=== PATIENT | female | born 1970 | race Caucasian/White ===

== ENCOUNTER 2021-09-08 09:25 | Emergency (ER) | payer OTHER, SELFPAY ==
[2021-09-08 09:55] VITALS: BP 120/82; PULSE 91; RESP 17; TEMP 36.7; O2SAT 99; BMI 31.9
--- NOTE | 2021-09-08 09:59 | HMH.EDUTC ---
[facility] [place] Clinical Impression: UTI (urinary tract infection) Qualifiers: Urinary tract infection type: site unspecified Hematuria presence: with hematuria Qualified Code(s): N39.0 - Urinary tract infection, site not specified Disposition: Home, Self-Care Condition on Discharge: Good Instructions: Urinary Tract Infection, DI for Urinary Tract Infection (UTI) Additional Instructions: *Increase fluids. Water not Soda or Tea *Start antibiotic immediately and be sure to take as ordered for the FULL length of time although you should start to see improvement over the next 48 hours *Pyridium as needed Remember this medication will turn your urine [place]. This is normal but it will stain what ever it gets on *You should not use Pyridium for more than 48 hours. If so , follow up with your primary physician to review urine culture and ensure that antibiotic is adequate for infection *Be SURE to follow up anytime for new or worsening symptoms with your family doctor. AND in 48 hours for urine culture results with your family doctor, if you do not have a doctor then you may call back to the [facility] for urine culture results and further treatment. We do recommend that you choose and establish care with a Primary Care Physician. AND follow up with them in 10-14 days to repeat UA to ensure infection is resolved and blood no longer present *Be sure to let your PCP know that we sent urine cultures from the [facility] so they can follow up to ensure that you area the on the correct antibiotic Call your doctor office and make appointment for 48 hours (2 days from today) to follow up and get the results of your urine culture and further treatment Prescriptions: Ciprofloxacin HCl [Cipro 500mg Tab] 500 mg PO BID 7 Days #14 tab Transmission Status: Received by [facility] Phenazopyridine HCl [Pyridium 200mg Tablet] 200 pow PO TID #6 tab Transmission Status: Received by [facility] Referrals: Provider,Referral, [Primary Care Provider] - As needed Time of Disposition: 10:10 Medical Decision Making - Tj Inquiry Pt receiving controlled substance: No Tj was queried for this patient: No Vital Signs: 09/08/21 09:55 09/08/21 10:19 Temperature 98.0 F 98.0 F Temperature Source Oral Pulse Rate 91 H Pulse Rate [Left Radial] 91 H Respiratory Rate 17 17 Blood Pressure 120/82 Blood Pressure [Right Arm] 120/82 Blood Pressure Mean [Right Arm] 94 02 Sat by Pulse Oximetry 99 - Lab Data Lab results reviewed: Yes: I reviewed the patient's lab results. Lab Results 09/08/21 10:00: Urine Color Dark yellow, Urine Appearance Cloudy, Urine pH 7.0, Ur Specific [place] 1.015, Urine Protein Trace, Urine Glucose (UA) Negative, Urine Ketones Negative, Urine Blood 2+, Urine Nitrate Negative, Urine Bilirubin Negative, Urine Urobilinogen 0.2, Ur Leukocyte Esterase 2+ A Orders (Tests/Meds): ED MEDICATIONS Discontinued Medications Generic Name Dose Route Start Last Admin Trade Name Freq PRN Reason Stop Dose Admin Ceftriaxone Sodium 1 gm 09/08/21 10:01 09/08/21 10:10 Ceftriaxone 1gm Vial IM 09/08/21 10:02 1 gm ONCE ONE Administration Lidocaine HCl 0 ml 09/08/21 10:01 09/08/21 10:10 Lidocaine 1% 5ml Pf Vial IM 09/08/21 10:02 2 ml ONCE ONE Administration ORDERS Category Date Time Status Urine Culture Stat Micro 09/08/21 10:00 Received [facility] [place] - General Stated complaint: possible UTI Time Seen by Provider: 09/08/21 09:59 Description of Symptoms (Recalled from Triage Doc. by RN): patient comes in today for uti symptoms. burning upon urination, pain with urination. symptoms began tuesday Symptoms (Recalled from RN notes): No Resp Symptoms (Recalled from RN notes): No Skin Symptoms (Recalled from RN notes): No MS Symptoms (Recalled from RN notes): No Functional Status (Recalled from RN notes): wnl - History of Present Illness Provider Complaint: Patient states that she has
[2021-09-08 10:17] LABS: Apearance,Urine Cloudy (Clear); Color,Urine Dark Yellow (Yellow)
[2021-09-08 10:18] LABS: Bilirubin,Urine Negative (Negative); Blood, Urine 2+ (Negative); Glucose,Urine (UA) Negative (Negative); Ketones,Urine Negative (Negative); Protein,Urine Trace (Negative); Specific Gravity, Urine 1.015 (1.005-1.030); UTC Leukocyte Esterase,Urine 2+ (Negative); Urobilinogen,Urine 0.2 EU/dl (0.2)
[2021-09-08 10:19] VITALS: BP 120/82; PULSE 91; RESP 17; TEMP 36.7
[2021-09-08 10:19] LABS: UTC Nitrate,Urine Negative (Negative)
== END 2021-09-08 10:21 | disposition home or self-care (01) ==
PROVIDERS: Emergency Provider Nurse Practitioner
DX: N39.0 Urinary tract infection, site not specified (principal); A49.8 Other bacterial infections of unspecified site; Z79.899 Other long term (current) drug therapy
CPT/HCPCS: 81003; 87086; 87088; 87186; 99213; G0463; J0696

== ENCOUNTER → 2022-07-21 14:57 | Outpatient (CLI) | payer OTHER, SELFPAY ==
--- NOTE | 2022-07-21 15:02 | MM_ITS ---
PROCEDURE INFORMATION: Exam: MG Bilateral Screening 3D Mammography Exam date and time: 07/21/2022 3:02 PM Age: 52 years old Clinical indication: Screening examination TECHNIQUE: Imaging protocol: Bilateral Screening tomosynthesis and 2D mammography including computer-aided detection (CAD) when performed. COMPARISON: 1. MG GIANNA SCRN MAMMO W/CAD BILAT 08/25/2018 10:24 AM 2. MG GIANNA SCRN MAMMO W/CAD BILAT 07/20/2017 8:10 AM FINDINGS: MAMMOGRAPHY: Breast composition: There are scattered areas of fibroglandular density. Mass: None. Architectural distortion: None. Calcifications: No suspicious calcifications. Asymmetric density: None. Skin thickening: None. Axillary adenopathy: None. IMPRESSION: No mammographic evidence of malignancy. Annual screening is recommended unless otherwise clinically indicated. ASSESSMENT: BI-RADS Category 1: Negative
== END ==
PROVIDERS: Visit Provider Internal Medicine
DX: Z12.31 Encounter for screening mammogram for malignant neoplasm of breast (principal)
CPT/HCPCS: 77063; 77067

== ENCOUNTER 2022-09-22 11:04 | Day surgery (SDC) | payer OTHER, SELFPAY ==
[2022-09-06 09:01] VITALS: BMI 27.3
[2022-09-22 11:39] VITALS: BP 117/75; PULSE 70; RESP 17; TEMP 36.7; O2SAT 98
--- NOTE | 2022-09-22 12:30 | EXP.ANES.CKL ---
[facility] Disclaimer: The information contained in this section may have been updated after the patient was seen, as this information can be updated by other users. Medical History History of substance use HTN (hypertension) Hx of esophageal reflux Hx of seasonal allergies Surgical History History of arthroscopy of both knees History of cholecystectomy History of hysterectomy Family History Other Colon cancer Family history of diabetes mellitus type II Family history of hypertension Family history of hyperthyroidism Social History Smoking Status: Current every day smoker tobacco type: cigarettes packs per day: 1 pack-years: 15 quit status: considering quitting Tobacco counseling given: support medications alcohol intake: never substance use type: former substance user and opiates counseling provided: treatment program current occupational status: employed Travel in the last 8 weeks: None household members: family housing: apartment marital status: education level: college service: No caffeine: Yes special uma needs: No do you feel safe at home: Yes victim of physical abuse: No victim of emotional abuse: No victim of sexual abuse: No would you like helpful sources: No [facility] Anesthesia Checklist Patient Identification Patient Identification: Arm Band and Verbal (Name & ) Structural Data Admitted From: Home Planned Operative Procedure/s: Colonoscopy Consent for Planned Operative Procedure(s) Verified: Yes NPO Status Verified Time NPO: 00:00 Chart Verification Results Verified: HCG Airway Assessment C-Spine Mobility Assessed: Yes TMJ Mobility Assessed: Yes Dentition: Good Dentition Neurological Assessment Level of Consciousness: Awake Hx Seizures: No Numbness or tingling in extremities: No Anesthesia Plan Anesthesia Risk discussed: Yes Anesthesia Plan: Verified ASA Class: II Anesthesia Type: MAC
[2022-09-22 12:38] VITALS: O2SAT 97
--- NOTE | 2022-09-22 13:11 | HMH.SCOPE ---
Procedure: Date: 09/22/22 Patient Date of :: 1970 Procedure Performed:: Colonoscopy Indications:: The patient is a 52 year old who is being seen today for a positive cologuard. There is a family history of colon cancer in two second degree relatives (grandparent and aunt). Performing Provider:: Wilder Molina MD Referring Provider:: THANG Garcia MD Sedation:: See RN records Procedure:: After placing the patient in the left lateral decubitus position, the colonoscopy was gently inserted into the rectum and under direct visualization advanced to the cecum which was identified by transillumination in the right lower quadrant, identification of the ileocecal valve, appendiceal orifice, and cecal strap. Color, texture, mucosa, and anatomy of the colon were carefully examined with the scope. Findings:: Anal canal: normal Rectum: Numerous sessile polyps 5 mm in size and less. Polyps removed with cold snare polypectomy Sigmoid colon: normal without polyps or inflammatory changes Descending colon: normal without polyps or inflammatory changes Splenic flexure: normal Transverse colon: normal without polyps or inflammatory changes Hepatic flexure: normal Ascending colon: normal without polyps or inflammatory changes Cecum: normal Terminal ileum: not visualized Impression: Polyps of the rectum Recommendations:: Await pathology results Repeat colonoscopy will depend on pathology results. If all polyps are hyperplastic, then will recommend 5 years due to a family history of colon cancer. If polyps are adenomatous, then will recommend a repeat colonoscopy in 3 years. Complications:: None Estimated blood obtained (mL): 0 Colonoscopy Component Colonoscopy Component Was a colonoscopy performed during today's procedure?: Yes Recommended follow up colonoscopy of at least 10 years?: Yes
[2022-09-22 13:13] VITALS: BP 103/58; PULSE 64; RESP 18; TEMP 36.4; O2SAT 96
[2022-09-22 13:23] VITALS: BP 111/60; PULSE 52; RESP 18; TEMP 36.4; O2SAT 96
[2022-09-22 13:33] VITALS: BP 93/70; PULSE 66; RESP 18; TEMP 36.4; O2SAT 96
[2022-09-22 13:43] VITALS: BP 113/64; PULSE 55; RESP 18; TEMP 36.4; O2SAT 96
== END 2022-09-22 13:43 | disposition home or self-care (01) ==
PROVIDERS: Visit Provider Internal Medicine
PROC: 0DJD8ZZ Inspection of Lower Intestinal Tract, Via Natural or Artificial Opening Endoscopic (ICD-10-PCS; CPT 45378; principal; 2022-09-22 12:30)
DX: Z12.11 Encounter for screening for malignant neoplasm of colon (principal); D12.8 Benign neoplasm of rectum; Z80.0 Family history of malignant neoplasm of digestive organs
CPT/HCPCS: 45385; J2704

== ENCOUNTER 2022-12-18 09:34 | Emergency (ER) | payer OTHER, SELFPAY ==
[2022-12-18 09:45] VITALS: BP 158/98; PULSE 63; RESP 18; TEMP 37.1; O2SAT 98; BMI 28.1
[2022-12-18 09:56] LABS: Microscopic, Urine URINE MICROSCOPIC (MICROSCOPIC)
--- NOTE | 2022-12-18 09:57 | EXP.UTC ---
Discharge Plan Disposition Patient Disposition: Home, Self-Care Condition: Good Prescriptions Prescriptions: New phenazopyridine [Pyridium] 200 mg tablet 200 mg PO Q8H 2 Days Qty: 6 0RF ciprofloxacin HCl [Cipro] 500 mg tablet 500 mg PO BID 7 Days Qty: 14 0RF No Action lisinopril-hydrochlorothiazide 20-25 mg tablet 1 tab PO DAILY Patient Comments: TAKE 1 TABLET BY MOUTH EVERY DAY estradiol 0.5 mg tablet 0.5 mg PO DAILY Patient Comments: TAKE 1 TABLET BY MOUTH EVERY DAY fluticasone propionate [Flonase Allergy Relief] 50 mcg/actuation [place],Suspension 1 spray INTRANASAL DAILY Rx Instructions: administer into each nostril buprenorphine-naloxone 8-2 mg tablet, sublingual 1 tab SUBLINGUAL WEEKLY Rx Instructions: takes Q other day bupropion HCl [Wellbutrin XL] 150 mg Tablet Extended Release 24 Hr 150 mg PO DAILY esomeprazole magnesium [Nexium] 20 mg Capsule,Delayed Release(Dr/Ec) 20 mg PO DAILY multivitamin with folic acid [One Daily Multivitamin] 400 mcg tablet 400 tab PO DAILY Referrals Follow up/Referrals: Peg Baker MD [Primary Care Provider] - See instructions Activity Restrictions/Add. Instructions Additional Instructions/Restrictions: Drink plenty of fluids. Take tylenol or ibuprofen for pain or fever. Take the medications as directed. Follow up with your regular doctor. GO TO THE ER FOR ANY WORSENING SYMPTOMS The pyridium will make your urine turn orange, this is an expected side effect. It will stain your clothes if it comes into contact with them. We will culture the urine. That will tell what bacteria is causing your infection and which antibiotics will treat it best. Sometimes the first antibiotic we prescribe turns out to not work against different bacteria. So, make sure you follow up within 3 days if you are not getting better. Clinical Impressions Clinical Impression: UTI (urinary tract infection) Stand Alone Forms Stand Alone Forms: Work/School Release Instructions Patient Instructions: Urine Culture, DI for Urinary Tract Infection (UTI), Phenazopyridine Discharge [place] Provider[place] Chadd Mult[place] [facility] [place] General Stated complaint: poss UTI Mode of Arrival: Ambulatory Source of Information: Patient Limitations: No Limitations Time Seen by Provider: 12/18/22 09:57 Description of Symptoms (Recalled from Triage Doc. by RN): Lower back pain, urgency/frequency to urinate, low grade fever, and diarrhea HEENT Symptoms (Recalled from RN notes): No Resp Symptoms (Recalled from RN notes): No Skin Symptoms (Recalled from RN notes): No MS Symptoms (Recalled from RN notes): No Functional Status (Recalled from RN notes): n/a History of Present Illness Provider Complaint: She states that for the past 2 days she has had low back pain, dysuria and frequency. Related Data Home Medications Medication Instructions Recorded Confirmed buprenorphine 8 mg-naloxone 2 mg 1 tab sublingual WEEKLY substance 09/06/22 12/18/22 sublingual tablet abuse bupropion HCl 150 mg 24 hr tablet, 150 mg PO DAILY smoking cessation 09/06/22 12/18/22 extended release (Wellbutrin XL) estradiol 0.5 mg tablet 0.5 mg PO DAILY hormone 09/06/22 12/18/22 fluticasone propionate 50 1 spray intranasal DAILY allergies 09/06/22 09/22/22 mcg/actuation nasal spray,suspension (Flonase Allergy Relief) lisinopril 20 1 tab PO DAILY HTN 09/06/22 12/18/22 mg-hydrochlorothiazide 25 mg tablet esomeprazole magnesium 20 mg 20 mg PO DAILY gerd 09/22/22 12/18/22 capsule,delayed release (Nexium) multivitamin with folic acid 400 400 tab PO DAILY Supplement 09/22/22 09/22/22 mcg tablet (One Daily Multivitamin) Previous Rx's Medication Instructions Recorded ciprofloxacin HCl 500 mg tablet 500 mg PO BID 7 days #14 tabs 12/18/22 (Cipro) phenazopyridine 200 mg tablet 200 mg PO Q8H 2 days #6 tabs 12/18/22 (Pyridium) Allergies A
[2022-12-18 10:26] LABS: Appearance,Urine SL CLOUDY (Clear); Bilirubin,Urine Negative (Negative); Blood, Urine 1+ (Negative); Color,Urine YELLOW (Yellow); Glucose,Urine (UA) Negative (Negative); Ketones,Urine Negative (Negative); Leukocyte Esterase,Urine Negative (Negative); Nitrate,Urine Negative (Negative); PH,Urine 7.5 (5.0-8.5); Protein,Urine Negative (Negative); Urobilinogen,Urine 0.2 EU/dl (0.2)
[2022-12-18 10:42] LABS: Bacteria,Urine 1+ /lpf
[2022-12-18 10:43] VITALS: BP 158/98; PULSE 63; RESP 18; TEMP 37.1; O2SAT 98
== END 2022-12-18 10:35 | disposition home or self-care (01) ==
PROVIDERS: Emergency Provider Nurse Practitioner Family; PCP Family Medicine
DX: N39.0 Urinary tract infection, site not specified (principal); B96.29 Other Escherichia coli [E. coli] as the cause of diseases classified elsewhere; M54.59 Other low back pain; F17.210 Nicotine dependence, cigarettes, uncomplicated; I10 Essential (primary) hypertension; K21.9 Gastro-esophageal reflux disease without esophagitis; J30.2 Other seasonal allergic rhinitis
CPT/HCPCS: 81001; 87086; 87088; 87186; 99212; 99214; G0463

== ENCOUNTER 2023-08-17 12:15 | Emergency (ER) | payer OTHER, SELFPAY ==
[2023-08-17 12:20] VITALS: BP 153/90; PULSE 73; RESP 18; TEMP 36.6; O2SAT 98; BMI 25.8
[2023-08-17 12:41] LABS: Apearance,Urine Clear (Clear); Bilirubin,Urine Negative (Negative); Blood, Urine 3+ (Negative); Color,Urine Yellow (Yellow); Glucose,Urine (UA) Negative (Negative); Ketones,Urine Negative (Negative); Protein,Urine Negative (Negative); UTC Leukocyte Esterase,Urine Negative (Negative); UTC Nitrate,Urine Negative (Negative); Urobilinogen,Urine 1 EU/dl (0.2)
--- NOTE | 2023-08-17 12:41 | ED_ITS ---
Discharge Plan Disposition Patient Disposition: Home, Self-Care Condition: Good Prescriptions Prescriptions: New phenazopyridine [Pyridium] 200 mg tablet 200 mg PO Q8H 2 Days Qty: 6 0RF nitrofurantoin monohyd/m-cryst [Macrobid] 100 mg Capsule 100 mg PO BID Qty: 10 0RF Rx Instructions: must administer with a meal/food No Action lisinopril-hydrochlorothiazide 20-25 mg tablet 1 tab PO DAILY Patient Comments: TAKE 1 TABLET BY MOUTH EVERY DAY estradiol 0.5 mg tablet 0.5 mg PO DAILY Patient Comments: TAKE 1 TABLET BY MOUTH EVERY DAY fluticasone propionate [Flonase Allergy Relief] 50 mcg/actuation [place],Suspension 1 spray INTRANASAL DAILY Rx Instructions: administer into each nostril buprenorphine-naloxone 8-2 mg tablet, sublingual 1 tab SUBLINGUAL WEEKLY Rx Instructions: takes Q other day bupropion HCl [Wellbutrin XL] 150 mg Tablet Extended Release 24 Hr 150 mg PO DAILY esomeprazole magnesium [Nexium] 20 mg Capsule,Delayed Release(Dr/Ec) 20 mg PO DAILY multivitamin with folic acid [One Daily Multivitamin] 400 mcg tablet 400 tab PO DAILY Referrals Follow up/Referrals: Peg Baker MD [Primary Care Provider] - See instructions Activity Restrictions/Add. Instructions Additional Instructions/Restrictions: Drink plenty of fluids. Take tylenol for pain or fever. Take the medications as directed. Follow up with your regular doctor. GO TO THE ER FOR ANY WORSENING SYMPTOMS The pyridium will make your urine turn orange, this is an expected side effect. It will stain your clothes if it comes into contact with them. We will culture the urine. That will tell what bacteria is causing your infection and which antibiotics will treat it best. Sometimes the first antibio tic we prescribe turns out to not work against different bacteria. So, make sure you follow up within 3 days if you are not getting better. Clinical Impressions Clinical Impression: UTI (urinary tract infection) Instructions Patient Instructions: Urinary Tract Infection, DI for Urinary Tract Infection (UTI) Discharge ED Provider: Chadd Multani [facility] – [place] HPI General Stated complaint: pain when urinating, lower back pain Time Seen by Provider: 08/17/23 12:31 Related Data Home Medications Medication Instructions Recorded Confirmed buprenorphine 8 mg-naloxone 2 mg 1 tab sublingual WEEKLY substance 09/06/22 08/17/23 sublingual tablet abuse bupropion HCl 150 mg 24 hr tablet, 150 mg PO DAILY smoking cessation 09/06/22 08/17/23 extended release (Wellbutrin XL) estradiol 0.5 mg tablet 0.5 mg PO DAILY hormone 09/06/22 08/17/23 fluticasone propionate 50 1 spray intranasal DAILY allergies 09/06/22 08/17/23 mcg/actuation nasal spray,suspension (Flonase Allergy Relief) lisinopril 20 1 tab PO DAILY HTN 09/06/22 08/17/23 mg-hydrochlorothiazide 25 mg tablet esomeprazole magnesium 20 mg 20 mg PO DAILY gerd 09/22/22 08/17/23 capsule,delayed release (Nexium) multivitamin with folic acid 400 400 tab PO DAILY Supplement 09/22/22 08/17/23 mcg tablet (One Daily Multivitamin) Previous Rx's Medication Instructions Recorded nitrofurantoin 100 mg PO BID #10 caps 08/17/23 monohydrate/macrocrystals 100 mg capsule (Macrobid) phenazopyridine 200 mg tablet 200 mg PO Q8H 2 days #6 tabs 08/17/23 (Pyridium) Allergies Allergy/AdvReac Type Severity Reaction Status Date / Time No Known Allergies Allergy Verified 08/17/23 12:42 [facility] Disclaimer: The information contained in this section may have been updated after the patient was seen, as this information can be updated by other users. Medical History History of substance use HTN (hypertension) Hx of esophageal reflux Hx of seasonal allergies Surgical History History of arthroscopy of both knees History of cholecystectomy History of hysterectomy Family History Other Colon cancer Family history of diabetes mellitus type II Family history of hypertension Family history of hyperthyroidism Social History Smoking Status: Current every day smoker tobacco type: cigarettes packs per day: 1 quit status: considering quitting alcohol intake: never substance use type: former substance user and opiates counseling provided: treatment program current occupational status: employed Travel in the last 8 weeks: None household members: family housing: apartment marital status: education level: college service: No caffeine: Yes special uma needs: No do you feel safe at home: Yes victim of physical abuse: No victim of emotional abuse: No victim of sexual abuse: No would you like helpful sources: No ROS Obtained: Yes All systems reviewed & no additional complaints except as documented Constitutional Constitutional: Reports system reviewed and no additional complaints, except as documented, Denies chills and Denies fever(s) Eyes Eyes: Denies eye discharge ENT Ears, Nose, Mouth, and Throat: Denies dysphagia, Denies sore throat and Denies throat swelling Cardiovascular Cardiovascular: Denies chest pain and Denies dyspnea Respiratory Respiratory: Denies chest congestion, Denies cough and Denies dyspnea Gastrointestinal Gastrointestingal: Denies abdominal pain, constipation, diarrhea, dysphagia, nausea or vomiting Genitourinary Female Genitourinary: Reports as per HPI, Reports dysuria, Reports urinary frequency, Denies urinary incontinence, Reports urinary hesitancy and Reports urinary urgency Musculoskeletal Musculoskeletal: Denies arthralgias and Reports back pain Integumentary/Breasts Skin/Breast: Denies rash Neurologic Neurologic: Denies paresthesias Allergic/Immunologic Allergic/Immunologic: Denies throat swelling Physical Exam General General appearance: alert and in no apparent distress Head Head exam: atraumatic and normocephalic Eye Eye exam: Present normal appearance, PERRL and EOMI ENT ENT exam: Present normal exam, mucous membranes moist, TM's normal bilaterally and normal external ear exam Neck Neck exam: Present normal inspection, full ROM and trachea midline; Absent tenderness, meningismus or lymphadenopathy Chest Chest inspection: Present normal inspection and symmetric chest wall rise; Absent tenderness Respiratory Respiratory exam: Present normal lung sounds bilaterally; Absent respiratory distress, wheezes or stridor Cardiovascular Cardiovascular exam: Present regular rate, normal rhythm and normal heart sounds Abdominal Exam Abdominal exam: Present soft and normal bowel sounds; Absent distention, tenderness, guarding, rebound, rigidity, incision, psoas sign, obturator sign, heel tap sign, Shelton's sign, Rovsing's sign or tenderness at McBurney's Point Extremities Exam Extremities exam: Present normal inspection, full ROM and normal capillary refill; Absent tenderness, edema, joint swelling, calf tenderness or cyanosis Back Exam Back exam: Present normal inspection and full ROM; Absent tenderness, CVA tenderness (R) or CVA tenderness (L) Neurological Exam Neurological exam: Present alert, oriented X3 and normal gait Psychiatric Psychiatric exam: Present normal affect and normal mood Skin Skin exam: Present warm, dry, intact and normal color Lymphatic Lymphatic Findings: no adenopathy Medical Decision Making Medical Records Medical records reviewed: No I reviewed the patient's medical records. Tj Inquiry Pt receiving controlled substance: No Lab Data Lab results reviewed: Yes I reviewed the patient's lab results. Orders (Tests/Meds): ORDERS Category Date Time Status Urine Culture Stat Micro 08/17/23 12:40 Ordered
[2023-08-17 13:35] VITALS: BP 153/90; PULSE 73; RESP 18; TEMP 36.6; O2SAT 98
--- NOTE | 2023-08-17 13:36 | PC.NURSE ---
Sent urine to lab via tube system
== END 2023-08-17 13:35 | disposition home or self-care (01) ==
PROVIDERS: Emergency Provider Nurse Practitioner Family; PCP Family Medicine
DX: N39.0 Urinary tract infection, site not specified (principal); M54.50 Low back pain, unspecified; I10 Essential (primary) hypertension; K21.9 Gastro-esophageal reflux disease without esophagitis; F17.210 Nicotine dependence, cigarettes, uncomplicated
CPT/HCPCS: 81003; 87086; 99212; 99214; G0463

== ENCOUNTER 2024-05-22 18:46 | Outpatient (CLI) | payer OTHER, SELFPAY | END 2024-05-22 23:59 | disposition home or self-care (01) | LOC: LAB.DROPOF 18:46 | PROVIDERS: PCP Nurse Practitioner; Visit Provider Nurse Practitioner | DX: R35.0 Frequency of micturition (principal) | CPT/HCPCS: 87086 ==

== ENCOUNTER 2024-06-05 15:59 | Emergency (ER) | payer OTHER, SELFPAY ==
[2024-06-05 16:05] VITALS: BP 146/93; PULSE 124; RESP 14; TEMP 36.8; O2SAT 95; BMI 28.8
--- NOTE | 2024-06-05 16:10 | ECG_ITS ---
APPROVED REPORT Exam: Resting ECG HR:120 bpm ECG Measurements Heart Rate 120 AXES OK 154 P 70 QRSd 101 QRS 58 QT 324 T 47 QTc 395 Conclusion SINUS TACHYCARDIA WITH OCCASIONAL VENTRICULAR PREMATURE COMPLEXES ABNORMAL RHYTHM ECG Electronically signed by : ELLIOT GAMBINO, 06/05/2024 23:39:41
--- NOTE | 2024-06-05 16:13 | CT_ITS ---
PROCEDURE INFORMATION: Exam: CTA Chest With Contrast Exam date and time: 06/05/2024 5:02 PM Age: 54 years old Clinical indication: Pain; Chest pressure; Additional info: Cp to back TECHNIQUE: Imaging protocol: Computed tomographic angiography of the chest with contrast. Exam focused on the arteries. 3D rendering (Not supervised by radiologist): MIP and/or 3D reconstructed images were created by the technologist. Radiation optimization: All CT scans at this facility use at least one of these dose optimization techniques: automated exposure control; mA and/or kV adjustment per patient size (includes targeted exams where dose is matched to clinical indication); or iterative reconstruction. Contrast material: ISOVUE 370; Contrast volume: 80 ml; Contrast route: INTRAVENOUS (IV); COMPARISON: No relevant prior studies available. FINDINGS: Pulmonary arteries: No evidence of pulmonary embolus to the segmental level. Aorta: No aneurysm of the aorta. No dissection of the aorta. Lungs: Subpleural interstitial densities in the lingula and both lower lobes may represent chronic lung changes. No focal consolidation. Pleural spaces: Unremarkable. No pneumothorax. No pleural effusion. Heart: Unremarkable. No cardiomegaly. No pericardial effusion. Lymph nodes: Unremarkable. No enlarged lymph nodes. Gallbladder and biliary ducts: The common duct is prominent. It measures 16 millimeters. This may be due to post cholecystectomy state and elderly status. However, if biliary obstruction is suspected clinically, recommend further evaluation Bones/joints: Unremarkable. No acute fracture. Soft tissues: Unremarkable. IMPRESSION: 1. No evidence of pulmonary embolus to the segmental level. 2. No aneurysm of the aorta. 3. No dissection of the aorta. 4. Subpleural interstitial densities in the lingula and both lower lobes may represent chronic lung changes. 5. No focal consolidation.
[2024-06-05 16:22] LABS: Basophils # 0.1 K/mm3 (0-0.2); Basophils % 1.1 % (0.1-2.0); Eosinophils # 0.6 K/mm3 (0.0-0.4); Eosinophils % 5.2 % (0.1-12.0); Hematocrit 42.8 % (37.0-47.0); Hemoglobin 14.2 g/dL (12.2-16.2); Mean Corpuscular HGB Conc 33.2 g/dL (31.8-35.4); Mean Corpuscular Hemoglobin 31.1 pg (27.0-31.2); Mean Corpuscular Volume 93.9 fl (81-99); Mean Platelet Volume 9.6 fl (7.4-10.4); Monocytes # 0.9 K/mm3 (0.1-1.0); Monocytes % 8.1 % (1.7-9.3); Neutrophils # 6.2 K/mm3 (1.8-7.8); Neutrophils % 57.2 % (37.0-80.0); Platelet Count 438 K/mm3 (142-424); Red Blood Count 4.56 M/mm3 (4.20-5.40); Red Cell Distribution Width 12.9 % (11.5-17.5); White Blood Count 10.8 K/mm3 (4.8-10.8)
[2024-06-05 16:25] LABS: Albumin Level 4.2 g/dl (3.5-5.0); Chloride 98 mmol/L (98-107); Potassium 3.7 mmoL/L (3.5-5.1); Sodium 133 mmol/L (136-145)
--- NOTE | 2024-06-05 16:27 | ED_ITS ---
Discharge Plan Disposition Patient Disposition: Home, Self-Care Prescriptions Prescriptions: New metronidazole 500 mg tablet 500 mg PO BID 7 Days Qty: 14 0RF No Action phenazopyridine [Pyridium] 200 mg tablet 200 mg PO Q8H 2 Days Qty: 6 0RF cefdinir 300 mg capsule 300 mg PO Q12H 10 Days Qty: 20 0RF lisinopril-hydrochlorothiazide 20-25 mg tablet 1 tab PO DAILY Patient Comments: TAKE 1 TABLET BY MOUTH EVERY DAY estradiol 0.5 mg tablet 0.5 mg PO DAILY Patient Comments: TAKE 1 TABLET BY MOUTH EVERY DAY buprenorphine-naloxone 8-2 mg tablet, sublingual 1 tab SUBLINGUAL WEEKLY Rx Instructions: takes Q other day bupropion HCl [Wellbutrin XL] 150 mg Tablet Extended Release 24 Hr 150 mg PO DAILY esomeprazole magnesium [Nexium] 20 mg Capsule,Delayed Release(Dr/Ec) 20 mg PO DAILY multivitamin with folic acid [One Daily Multivitamin] 400 mcg tablet 400 tab PO DAILY Referrals Follow up/Referrals: Chalino Salcedo MD [Staff Physician] - See instructions Provider,MD Julio Cesar [Primary Care Provider] - See instructions Activity Restrictions/Add. Instructions Additional Instructions/Restrictions: At this time it was felt you are safe to be discharged home. If new or worsening symptoms please do not hesitate to return the emergency department. Please call and schedule appointment with Dr. Salcedo as discussed. Please take antibiotics as prescribed. Clinical Impressions Clinical Impression: infection, trichomonal, Chest pain Print Language Print Language: Indonesian Discharge ED Provider: John Castro [facility] General Chief Complaint: Chest Pain Stated Complaint: CP Time Seen by Provider: 06/05/24 16:12 Mode of Arrival: Ambulatory Source of Information: Patient Description of Symptoms (Recalled from ER Triage Doc. by RN): pt states around 1500 she was doing the dishes when she suddenly had numbness in her BUE, R chest/shoulder pain, palpitations, N/V and JAIMES. pt states this has happened intermittantly over the last week. It was a daily occurance but is now happening multiple times a day. pt denies ABD pain or SOA. History of Present Illness HPI narrative: Patient is a 54-year-old female with past medical history of recently diagnosed urinary tract infection who presents emergency department for evaluation of rapid heart rate and chest pain. Onset was acute, over the last week, waxing waning substernal right sternal border radiating up into her right shoulder and through to her back. Patient is on Suboxone at baseline and has not had any medication changes. She drinks 3 glasses of wine a day last drink today. Denies other illicits. She is on estradiol. When she gets these episodes of chest pain she also feels tingling in her hands and has a global vague headache that has resolved and is not currently happening. No other acute complaints. With respect to her urinary tract infection patient was diagnosed with 1 and treated with 10-day course cefdinir for which she has no ongoing symptoms. Please note that above description of symptoms, in this electronic medical record under categorization of recalled from ER triage doctor by RN are reflective of an initial nursing assessment, however, is not reflective of my full history and physical exam that was personally taken and clarified. Consequentially, this preceding description of symptoms, which may include the patient's categorized chief complaint in the EMR, do not reflect my personal clinical impression, and the ultimate description of history of present illness and patient stated complaints should be deferred to this section of the note. Unless stated otherwise or congruent with this section of the note, additional signs, symptoms, or incongruence should be interpreted as inaccurate with my clinical impression. Related Data Home Medications ?Medication ?Instructions ?Recorded ?Confirmed buprenorphine 8 mg-naloxone 2 mg 1 tab sublingual WEEKLY substance 09/06/22 05/22/24 sublingual tablet abuse bupropion HCl 150 mg 24 hr tablet, 150 mg PO DAILY smoking cessation 09/06/22 05/22/24 extended release (Wellbutrin XL) estradiol 0.5 mg tablet 0.5 mg PO DAILY hormone 09/06/22 05/22/24 lisinopril 20 1 tab PO DAILY HTN 09/06/22 05/22/24 mg-hydrochlorothiazide 25 mg tablet esomeprazole magnesium 20 mg 20 mg PO DAILY gerd 09/22/22 05/22/24 capsule,delayed release (Nexium) multivitamin with folic acid 400 400 tab PO DAILY Supplement 09/22/22 05/22/24 mcg tablet (One Daily Multivitamin) Previous Rx's ?Medication ?Instructions ?Recorded cefdinir 300 mg capsule 300 mg PO Q12H 10 days #20 caps 05/22/24 phenazopyridine 200 mg tablet 200 mg PO Q8H 2 days #6 tabs 05/22/24 (Pyridium) metronidazole 500 mg tablet 500 mg PO BID urethritis 7 days 06/05/24 #14 tabs Allergies Allergy/AdvReac Type Severity Reaction Status Date / Time Opioids - Morphine Analogues Allergy Severe Hallucinati Verified 06/05/24 16:26 [facility] Disclaimer: The information contained in this section may have been updated after the patient was seen, as this information can be updated by other users. Medical History Hx of seasonal allergies Hx of esophageal reflux HTN (hypertension) History of substance use Surgical History History of arthroscopy of both knees History of hysterectomy History of cholecystectomy Family History Other Colon cancer Family history of diabetes mellitus type II Family history of hypertension Family history of hyperthyroidism Social History Smoking Status: Current every day smoker tobacco type: cigarettes packs per day: 1 quit status: considering quitting alcohol intake: never substance use type: former substance user and opiates counseling provided: treatment program current occupational status: employed Travel in the last 8 weeks: None household members: family housing: apartment marital status: education level: college service: No caffeine: Yes special uma needs: No do you feel safe at home: Yes victim of physical abuse: No victim of emotional abuse: No victim of sexual abuse: No would you like helpful sources: No Have you lived/traveled outside US in past 30 days?: No Contact w/someone who lives/traveled outside US past 30 days?: No Exposure to someone with infectious disease in past 14 days?: No Do you have a fever (greater than 100.4 F or 38 C)?: No Have you tested positive for COVID-19: No Exposed to someone with COVID-19 in past 14 days?: No Do you have a sore throat?: No Do you have a cough?: No Do you have any weakness?: No Do you have any diarrhea?: No Are you experiencing any unusual bleeding?: No Do you have any muscle aches/pain?: No Do you have any abdominal pain?: No Are you experiencing loss of taste or smell?: No ROS Obtained: Yes Systems reviewed as appropriate & no additional complaints except as documented Physical Exam General General appearance: alert and in no apparent distress Head Head exam: atraumatic and normocephalic Eye Eye exam: Present PERRL and EOMI ENT ENT exam: Present mucous membranes moist Neck Neck exam: Present normal inspection Chest Chest inspection: Present normal inspection and symmetric chest wall rise Respiratory Respiratory exam: Present normal lung sounds bilaterally; Absent respiratory distress Cardiovascular Cardiovascular exam: Present regular rate and tachycardia Abdominal Exam Abdominal exam: Present soft; Absent tenderness Extremities Exam Extremities exam: Present normal inspection Neurological Exam Neurological exam: Present alert, oriented X3 and CN II-XII intact; Absent motor sensory deficit Psychiatric Psychiatric exam: Present normal affect Skin Skin exam: Present warm and dry HEART Score HEART Score HEART Score assessment performed?: Yes History (anamnesis): Moderately suspicious ECG: Non-specific disturbance Age: 45-65 years Risk factors: 1-2 risk factors Troponin: </= normal limit HEART Score: 4 Critical Care Critical Care Time Critical Care Time: No Medical Decision Making Tj Inquiry Pt receiving controlled substance: No Vital Signs Vital Signs: 06/05/24 16:05 06/05/24 16:36 06/05/24 17:15 Temperature 98.3 F Temperature Source Oral Pulse Rate 95 H 88 Pulse Rate [Left] 124 H Respiratory Rate 14 13 17 Blood Pressure Blood Pressure [Right Arm] 146/93 H Blood Pressure Mean [Right Arm] 110 Blood Pressure Source [Right Arm] Automatic Cuff Blood Pressure Position [Right Arm] Sitting 02 Sat by Pulse Oximetry 95 96 97 Oxygen Delivery Method Room Air Room Air Room Air 06/05/24 17:45 06/05/24 19:35 Temperature Temperature Source Pulse Rate 88 92 H Pulse Rate [Left] Respiratory Rate 20 10 L Blood Pressure 140/95 H Blood Pressure [Right Arm] Blood Pressure Mean [Right Arm] Blood Pressure Source [Right Arm] Blood Pressure Position [Right Arm] 02 Sat by Pulse Oximetry 97 99 Oxygen Delivery Method Room Air Lab Data Labs: Lab Results 06/05/24 16:08: WBC 10.8, RBC 4.56, Hgb 14.2, Hct 42.8, MCV 93.9, MCH 31.1, MCHC 33.2, RDW 12.9, Plt Count 438 H, MPV 9.6, Neut % (Auto) 57.2, Lymph % (Auto) 28.0, [place] % (Auto) 8.1, Eos % (Auto) 5.2, Baso % (Auto) 1.1, Neut # (Auto) 6.2, Lymph # (Auto) 3.0, [place] # (Auto) 0.9, Eos # (Auto) 0.6 H, Baso # (Auto) 0.1, S odium 133 L, Potassium 3.7, Chloride 98, Carbon Dioxide 26, Anion Gap 12.7, BUN 7, Creatinine 0.60, Estimated Creat Clear 149, Estimated GFR 105, Est GFR ( Amer) 127, Glucose 98, Calcium 9.1, Magnesium 1.5 L, Total Bilirubin 0.4, AST 82 H, ALT 66, Alkaline Phosphatase 197 H, Troponin I < 0.01, Total Protein 7.5, Albumin 4.2, Globulin 3.3 H, Albumin/Globulin Ratio 1.3, TSH 4.77 H , Free T4 1.27, Plasma/Serum Alcohol < 10, HCV Ab VALERI w/Rflx PCR Qn Negative, HIV Ag/Ab Combo Qual Negative 06/05/24 16:25: SARS-CoV-2 (PCR) Not detected, Influenza A Untype (PCR) Not detected, Influenza Type B (PCR) Not detected 06/05/24 16:27: Urine Color Dark yellow, Urine Appearance Slightly cloudy, Urine pH 5.0, Ur Specific [place] 1.025, Urine Protein Trace A, Urine Glucose (UA) Negative, Urine Ketones Negative, Urine Blood Trace A, Urine Nitrate Negative, Urine Bilirubin Negative, Urine Urobilinogen 0.2, Ur Leukocyte Esterase 1+ A, Urine RBC None, Urine WBC 20-50, Ur Squamous Epith Cells 50-100, Urine Bacteria 1+, Urine Trichomonas 2+ 06/05/24 19:35: Troponin I < 0.01 06/05/24 16:08 06/05/24 16:08 Response Orders (Tests/Meds): ED MEDICATIONS Generic Name Dose Route Start Last Admin Trade Name Freq PRN Reason Stop Dose Admin Sodium Chloride 10 ml 06/05/24 17:01 06/05/24 17:01 Sodium Chloride 0.9% 10ml Syr (Rad Only) IV 07/05/24 17:00 10 ml NEEDED PRN Administration Maintain IV Site Discontinued Medications Generic Name Dose Route Start Last Admin Trade Name Brandon PRN Reason Stop Dose Admin Lactated Ringer's 1,000 mls @ 999 mls/hr 06/05/24 16:25 06/05/24 16:37 Lactated Ringer's 1000 Ml Bag IV 06/05/24 17:25 999 mls/hr .Q1H1M ONE Administration Iopamidol 80 ml 06/05/24 17:01 06/05/24 17:01 Iopamidol-370 (76%);100ml Bottle IV 06/05/24 17:02 80 ml ONCE ONE Administration Sodium Chloride 50 ml 06/05/24 17:01 06/05/24 17:01 0.9 % Sodium Chloride 50 Ml Vial IV 06/05/24 17:02 50 ml ONCE ONE Administration ORDERS Category Date Time Status CT angio chest - dissection Stat Cat Scan 06/05/24 16:13 Completed Consult Orthopedic Shoe Fitter [CONS] Routine Cons 06/05/24 17:29 Active CBC w/Auto Diff [Complete Blood Count Auto Diff] Stat Lab 06/05/24 16:08 Completed CMP [Comprehensive Metabolic Panel] Stat Lab 06/05/24 16:08 Completed Ethanol [Ethyl Alcohol] Stat Lab 06/05/24 16:08 Completed Free T4 (Free Thyroxine) Stat Lab 06/05/24 16:08 Completed HIV Combo Stat Lab 06/05/24 16:08 Completed Hepatitis C Ab Qual. W/ RFX Stat Lab 06/05/24 16:08 Completed MG [Magnesium] Stat Lab 06/05/24 16:08 Completed Rapid PCR Covid and Flu A/B Stat Lab 06/05/24 16:25 Completed TSH [Thyroid Stimulating Hormone] Stat Lab 06/05/24 16:08 Completed Trop I [Troponin I] Stat Lab 06/05/24 16:08 Completed Troponin I Q3H Lab 06/05/24 19:35 Completed Troponin I Q3H Lab 06/05/24 22:15 Ordered UA [Urinalysis and Microscopic] Stat Lab 06/05/24 16:27 Completed Blood Culture Stat Micro 06/05/24 16:48 Received Urine Culture Stat Micro 06/05/24 16:27 Received ECG Data Tracing #1: ECG Narrative: Independently inter by me rate is 120, rhythm is regular, axis is normal, sinus tachycardia with isolated PVC no ST elevation in anatomical contiguous leads, QTc 395. MDM Narrative Medical Decision Narrative: In summary patient is a 54-year-old female with past medical history described above presents emerged part for evaluation of rapid heart rate and chest pain. Patient is hemodynamically stable nontoxic-appearing upon arrival, afebrile, regular tachycardia. Patient is on estrogen containing medications. Differential diagnosis includes aortic dissection, pulmonary embolism, ACS, metabolic derangement, alcohol withdrawal, among others. Workup we conducted with broad hematologic labs CT angio chest. Viral swab be obtained. Initial inventions include crystalloid bolus. Patient was diagnosed with urinary tract infection recently and completed 10-day course of cefdinir however feels much better has no urinary symptoms which makes sepsis less likely but urinalysis will be repeated. Workup reviewed by me, hematologic labs are nonactionable, no significant leukocytosis no DANIELLE or critical electrolyte abnormality. Serial troponins undetectably low. Urinalysis has trichomonas for which this was discussed with length at bedside and patient will receive outpatient therapy and I encouraged her partner to get tested. Chest CTA no acute findings. Upon repeat evaluation patient was resting comfortably in bed, no ongoing chest pain reported and patient is appropriate for outpatient management at this time we will follow-up with Dr. Salcedo on outpatient basis and will be discharged with a course of metronidazole.
[2024-06-05 16:28] LABS: Alanine Aminotransferase 66 U/L (12-78); Albumin/Globulin Ratio 1.3 (1.1-1.8); Alkaline Phosphatase 197 U/L (38-126); Anion Gap 12.7 mEq/L (5-15); Aspartate Amino Transferase 82 U/L (14-36); Bilirubin,Total 0.4 mg/dl (0.2-1.3); Blood Urea Nitrogen 7 mg/dl (7-17); Calcium 9.1 mg/dl (8.4-10.2); Carbon Dioxide 26 mmol/L (22.0-30.0); Creatinine Clearance Estimated 149 mL/min (50-200); Estimated Glomerular Filt Rate 105 ml/min (>60); GFR (African American) 127 ML/MIN (>60); Globulin 3.3 g/dL (1.3-3.2); Glucose 98 mg/dl (74-100); Total Protein,Serum 7.5 g/dl (6.3-8.2)
[2024-06-05 16:33] LABS: Microscopic, Urine URINE MICROSCOPIC (MICROSCOPIC)
[2024-06-05 16:33] LABS: Coronavirus 19, PCR Not Detected (NotDetected); Influenza A, PCR Not Detected (NotDetected); Influenza B, PCR Not Detected (NotDetected)
[2024-06-05 16:36] VITALS: PULSE 95; RESP 13; O2SAT 96
[2024-06-05] MEDS: LACTATED RINGERS 1000ML 1,000 ML 999 ML IV (16:37)
[2024-06-05 16:46] LABS: Troponin I < 0.01 ng/ml (0.00-0.034)
[2024-06-05] MEDS: IOPAMIDOL-370 (76%);100ML BOTTLE 80 ML IV (17:01)
[2024-06-05] MEDS: SODIUM CHLORIDE 0.9% 10ML SYR (RAD ONLY) 10 ML IV (17:01)
[2024-06-05] MEDS: 0.9 % SODIUM CHLORIDE 50 ML VIAL IV (17:01)
[2024-06-05 17:15] VITALS: PULSE 88; RESP 17; O2SAT 97
[2024-06-05 17:22] LABS: Magnesium 1.5 mg/dl (1.6-2.3)
[2024-06-05 17:39] LABS: Free T4 (Free Thyroxine) 1.27 ng/dl (0.78-2.19)
[2024-06-05 17:43] LABS: HIV Combo NEGATIVE (Negative)
[2024-06-05 17:45] VITALS: PULSE 88; RESP 20; O2SAT 97
[2024-06-05 17:48] LABS: Ethyl Alcohol < 10 mg/dl (0-10)
[2024-06-05 17:51] LABS: Hepatitis C Ab Qual. W/ RFX NEGATIVE (Negative)
--- NOTE | 2024-06-05 19:11 | PC.NURSE ---
pt ambulatory with slow and steady gait to and from restroom. AOx4, NAD, noted, RR even and non labored, skin pwd.
[2024-06-05 19:25] LABS: Thyroid Stimulating Hormone 4.77 uIU/mL (0.465-4.68)
[2024-06-05 19:35] VITALS: BP 140/95; PULSE 92; RESP 10; O2SAT 99
--- NOTE | 2024-06-05 19:36 | PC.NURSE ---
delta trop drawn and sent to the lab at this time
[2024-06-05 19:53] LABS: Appearance,Urine Slightly Cloudy (Clear); Blood, Urine Trace (Negative); Color,Urine Dark Yellow (Yellow); Glucose,Urine (UA) Negative (Negative); Ketones,Urine Negative (Negative); Protein,Urine Trace (Negative); Specific Gravity, Urine 1.025 (1.005-1.030)
[2024-06-05 19:54] LABS: Bilirubin,Urine Negative (Negative); Leukocyte Esterase,Urine 1+ (Negative); Nitrate,Urine Negative (Negative); Urobilinogen,Urine 0.2 EU/dl (0.2)
--- NOTE | 2024-06-05 20:20 | PC.NURSE ---
Contacted lab regarding a UA for this patient, spoke with caitlyn in the lab. When she returned to the call she advised that they were manually resulting it now.
[2024-06-05 20:39] LABS: Squamous Epithelial Cell,Urine 50-100 #/hpf (0-5); Trichomonas,Urine 2+ /lpf; WBC,Urine 20-50 #/hpf (0-3)
[2024-06-05 20:41] LABS: Bacteria,Urine 1+ /lpf
[2024-06-05 20:44] LABS: Troponin I < 0.01 ng/ml (0.00-0.034)
[2024-06-05 20:59] VITALS: BP 161/82; PULSE 78; RESP 14; TEMP 36.7; O2SAT 100
--- NOTE | 2024-06-07 13:35 | PC.NURSE ---
SPOKE WITH PT, INFORMED OF NEW ABX GIVEN.
--- NOTE | 2024-06-08 08:53 | PC.NURSE ---
URINE CULTURE DISCUSSED WITH DR GAMBINO, NO NEW ORDERS
== END 2024-06-05 21:00 | disposition home or self-care (01) ==
PROVIDERS: Emergency Provider Emergency Medicine
DX: A59.00 Urogenital trichomoniasis, unspecified (principal); R07.9 Chest pain, unspecified; R20.2 Paresthesia of skin; M25.511 Pain in right shoulder; R00.2 Palpitations; R11.2 Nausea with vomiting, unspecified; R51.9 Headache, unspecified; F17.210 Nicotine dependence, cigarettes, uncomplicated
CPT/HCPCS: 71275; 80053; 80320; 81001; 83735; 84439; 84443; 84484; 85025; 86803; 87040; 87086; 87088; 87186; 87389; 87636; 93005; 96360; 99285; J7120; Q9967

== ENCOUNTER 2024-08-15 07:53 | Outpatient (CLI) | payer OTHER, SELFPAY ==
--- NOTE | 2024-08-15 07:57 | MM_ITS ---
PROCEDURE INFORMATION: Exam: MG Bilateral Screening 3D Mammography Exam date and time: 08/15/2024 8:07 AM Age: 54 years old Clinical indication: Screening examination TECHNIQUE: Imaging protocol: Bilateral Screening tomosynthesis and 2D mammography including computer-aided detection (CAD) when performed. COMPARISON: 1. MG MM DIG SCREENING MAMM BI W/CAD 07/21/2022 3:02 PM 2. MG GIANNA SCRN MAMMO W/CAD BILAT 08/25/2018 10:24 AM FINDINGS: MAMMOGRAPHY: Breast composition: There are scattered areas of fibroglandular density. Mass: None. Architectural distortion: None. Calcifications: No suspicious calcifications. Asymmetric density: None. Skin thickening: None. Axillary adenopathy: None. IMPRESSION: No mammographic evidence of malignancy. Annual screening is recommended unless otherwise clinically indicated. ASSESSMENT: BI-RADS Category 1: Negative.
--- NOTE | 2024-08-15 07:57 | CT_ITS ---
FINAL REPORT TECHNIQUE: Axial CT of the abdomen and pelvis, without and with IV contrast. This study was performed with techniques to keep radiation doses as low as reasonably achievable, (ALARA). Individualized dose reduction techniques using automated exposure control or adjustment of mA and/or kV according to the patient''s size were employed. CLINICAL HISTORY: RECURRENT UTI'S FINDINGS: Abdomen: Lung bases are clear. There is severe fatty infiltration of the liver, particularly the posterior right liver. There is biliary ductal dilatation measuring up to 20 mm, greater than expected for prior cholecystectomy. The spleen, pancreas and adrenal glands are unremarkable. Precontrast imaging shows no renal stone disease. Postcontrast imaging of the kidneys shows no mass or obstruction. No bowel obstruction or fluid collection is seen. Pelvis: There is an umbilical hernia containing fat. The appendix is not visualized. Patient is status post hysterectomy. The bladder is unremarkable. There is mild sigmoid diverticulosis without evidence of diverticulitis. No fluid collection or adenopathy is seen. IMPRESSION: No upper urinary tract or stone disease. Severe biliary ductal dilatation. Correlate with LFTs, if abnormal, correlate with MRCP. Reviewed, Interpreted and Dictated by Eileen Horner MD Transcribed by Kamilah Burris Authenticated and [facility]
[2024-08-15 08:46] LABS: Blood Urea Nitrogen 8 mg/dl (7-17); Estimated Glomerular Filt Rate 130 ml/min (>60); GFR (African American) 157 ML/MIN (>60)
[2024-08-15] MEDS: IOPAMIDOL-370 (76%);100ML BOTTLE 75 ML IV (09:10)
[2024-08-15] MEDS: SODIUM CHLORIDE 0.9% 10ML SYR (RAD ONLY) 10 ML IV (09:10)
== END 2024-08-15 23:59 | disposition home or self-care (01) ==
LOC: RAD 07:54
PROVIDERS: PCP Nurse Practitioner Family; Visit Provider Nurse Practitioner Family
DX: Z12.31 Encounter for screening mammogram for malignant neoplasm of breast (principal); N39.0 Urinary tract infection, site not specified; K83.8 Other specified diseases of biliary tract; R92.313 Mammographic fatty tissue density, bilateral breasts
CPT/HCPCS: 36415; 74178; 77063; 77067; 82565; 84520; Q9967

== ENCOUNTER 2024-12-12 12:53 | Outpatient (CLI) | payer OTHER, SELFPAY ==
--- OUTSIDE RECORDS SUMMARY | 2024-12-13 11:29 | XMS_ITS | Clinical Summary ---
Author Organization [facility] Address [address] [place] [address] Care Team Providers Care Osteopathy Doctor Name Role Phone Unavailable Primary Care Provider Unavailabl e Allergies No known active allergies Medications buprenorphine-n aloxone (Suboxone) 8-2 MG SL tablet 03/3107/16/2020 Active esomeprazole (NexIUM) [address] capsule 01/31/2020 Active fluconazole (Diflucan) 150 MG tabletIndicatio ns:Yeast infection Take 1 tablet now, repeat in 4 days. 2 tablet 02/11/2021 Active amLODIPine (Norvasc) 5 MG tablet TAKE 1 TABLET BY MOUTH AT BEDTIME 90 tablet 03/04/2022 Active ProAir HFA 108 (90 Base) MCG/ACT inhalerIndicati ons:Simple chronic bronchitis (CMS/HCC) INHALE 2 PUFFS BY MOUTH EVERY FOUR HOURS NEEDED FOR WHEEZING 8.5 g 1 03/04/2022 Active lisinopril-hydr oCHLOROthiazide 20-25 MG tablet TAKE 1 TABLET BY MOUTH EVERY DAY 30 tablet 05/29/2022 Active estradiol (Estrace) 0.5 MG tablet TAKE 1 TABLET BY MOUTH EVERY DAY 30 tablet 05/29/2022 Active Active Problems Problem Noted Date Diagnosed Date Lymphadenopathy 07/18/2019 Severino cyst 04/30/2019 GERD (gastroesophageal reflux disease) 8 Menopausal symptoms 06/10/2016 Leiomyoma of uterus 06/22/2014 Osteoarthritis of knee 06/22/2014 Essential (primary) hypertension 06/22/2014 Immunizations Immunization Administration Dates Next Due Influenza, injectable, quadrivalent, preservativ e free 02/16/2019,02/16/2019 Family History Medical History Relation Name Comments Breast cancer Mother Colon cancer Mother Cervical cancer Other 1 Hypertension Other 2 Osteoarthritis Other 3 Thyroid disease Other 4 Diabetes type II Other 5 Colon cancer Paternal Grandfather Relation Name Status Comments Mother Other 1 Other 2 Other 3 Other 4 Other 5 Paternal Grandfather Social History Tobacco Use Types Packs/Day Years Used Date Smoking Tobacco: Every Day Cigarettes 1 20 Smokeless Tobacco: Never Alcohol Use Standard Drinks/Week Comments Yes 0 (1 standard drink = 0.6 oz pur e alcohol) PHQ-2 Answer Date Recorded Patient Health Questionnaire-2 Score 0 10/16/2020 Comments Unknown Sex and Gender Information Value Date Recorded Sex Assigned at Not on file Legal Sex Female 8:14 PM EDT Gender Identity Not on file Sexual Orientation Not on file Last Filed Vital Signs Vital Sign Reading Time Taken Comments Blood Pressure 113/78 07/13/2021 3:12 PM EDT Pulse 75 07/13/2021 3:12 PM EDT Temperature 37.1 C (98.8 F) 10/16/2020 7:57 AM EDT Respiratory Rate 16 07/13/2021 2:11 PM EDT Oxygen Saturation 98% 07/13/2021 2:11 PM EDT Inhaled Oxygen Concentration - - Weight 101 kg (222 lb 7.1 oz) 02/10/2021 1:22 PM EST Height 172.7 cm (5' 8 ) 02/10/2021 1:22 PM EST Body Mass Index 33.82 02/10/2021 1:22 PM EST Plan of Treatment Health Maintenance Due Date Last Done Comments [facility]-Depression Screening 1972 [facility]-/Child/Adol SDOH Screenings 1972 [facility]- SDOH Screenings 1990 [facility]-Adult SDOH Screenings 1990 [facility]-DTaP,Tdap,and Td Vaccine s (1 - Tdap) 05/29/1991 [facility]-Hepatitis B Vaccines (1 of 3 - 19+ 3-dose series) 05/29/1991 [facility]-Pap Smear 1993 [facility]-Cervical Cancer Screening 2002 [facility]-HPV/Cotest 2002 CT Colonography 2017 Colonoscopy 2017 FIT-DNA 2017 FIT 2017 FOBT 2017 Sigmoidoscopy 2017 [facility]-Colorectal Cancer Screening 2017 [facility]-Pneumococcal Vaccine: 50 + Years (1 of 1 - PCV) 2022 [facility]-Zoster Vaccines (1 of 2) 2022 [id number] Vaccine (1 - season) 2024 [facility]-Influenza Vaccine (#1) 11/26/202412/24, 02/16/2019, 02/16/2019 HPV Vaccines Aged Out No longer eligi ble based on patient's age to complete this topic [facility]-HIB Vaccines Aged Out No longer e ligible based on patient's age to complete this topic [facility]-Hepatitis A Vaccines Aged Out No longer eligible based on patient's age to complete this topic [facility]-IPV Vaccines Aged Out No longer e ligible based on patient's age to complete this topic [facility]-Rotavirus Vaccines Aged Out No lo nger eligible based on patient's age to complete this topic [address] [place] [address] [employer]
--- OUTSIDE RECORDS SUMMARY | 2024-12-13 11:29 | XMS_ITS | Encounter Summary ---
Author Organization [facility] Address [address] [place] [address] Care Team Providers Care Barbecue Cook Name Role Phone Poppy Lara MD Primary Care Provider [phone] Reason for Visit * Reason Comments Med Refill Encounter Details Date Type Department Care Team (Late st Contact Info) Description 06/25/2022 Refill [facility] [address] [place] [address] Poppy Lara MD [address] [place] [address] Social History Tobacco Use Types Packs/Day Years [...] on file Sexual Orientation Not on file documented as of this encounter Miscellaneous Notes * Telephone Encounter - Jack Rosen MD - 06/28/2022 12:57 PM EDT Recommend appt with pcp documented in this encounter Plan of Treatment Not on file documented as of this encounter Visit Diagnoses Not on filedocumented in this encounter Care Teams Barbecue Cook Relationship Specialty Start Date End Date Poppy Lara MD [address] [place] [address] PCP - General 08/08/20 06/28/22 documented as of this encounter
--- OUTSIDE RECORDS SUMMARY | 2024-12-13 11:29 | XMS_ITS | Encounter Summary ---
Author Organization [facility] Address [address] [place] [address] Care Team Providers Care Metal Furniture Assembly Supervisor Name Role Phone Poppy Lara MD Primary Care Provider [phone] Encounter Details Date Type Department Care Team (Late st Contact Info) Description 06/10/2021 Outside Procedure External Location [address] [place] [address] Provider, [facility] Social History Tobacco Use Types Packs/Day Years [...] on file documented as of this encounter Plan of Treatment Not on file documented as of this encounter Procedures Procedure Name Priority Date/Time Associated Diagnosis Comments ECHO, ADULT TRANSTHORACIC COMPLETE W/ COLOR AND DOPPLER 06/10/2021 7:21 AM EDT documented in this encounter Results * Echo, Adult Transthoracic Complete w/ Color and Doppler (06/10/2021 7:21 AM EDT) Anatomical Region Laterality Modality Ultrasound 06/10/2021 7:21 AM EDT Narrative 06/11/2021 10:32 AM EDT [address] [address] Name: VERNON FRANKS Exam Date: 06/10/2021 : 1970 Age 51 Gender: F Physician: LEÓN ARREDONDO Facility: [facility] Facility HSV: Outpatient Exam: ECHO W SPEC COLOR FLOW Reason for Study: palpitations, chest pain SUMMARY Normal LV size with ejection fraction is>55%. Left ventricular filling pattern is indeterminate. INTERPRETATION DETAIL Fair quality study. Left ventricle: The left ventricle is normal in size with normal systolic function. The ejection fraction is >55%. There is normal LV wall thickness. The left ventricular wall motion is normal. The left ventricular filling pattern is indeterminate. Left atrium: The left atrium is normal. LA volume: 56.3mL, LA volume index: 26.3mL/mA . Right ventricle: The right ventricle is normal in size with normal function. Right atrium: The right atrium is normal. Mitral valve: The mitral valve is mildly thickened. There is no mitral stenosis. There is trace mitral regurgitation. Aortic valve: The aortic valve is mildly thickened. There is no aortic stenosis. AV peak kjggultt=319ii/sec. Tricuspid valve: The tricuspid valve is normal. There is no tricuspid regurgitation, so PA pressure cannot be estimated. Pulmonic valve: The pulmonic valve is normal. Pericardium: The pericardium is normal. Interatrial septum: The interatrial septum is normal. Aorta: The aortic root is normal. Aortic dimensions - Ao M-mode= 3.20cm, Ascending=3.00cm. Vena Cava: The inferior vena cava is normal. MEASUREMENTS Left Ventricle IVSd: 0.95cm (0.6-1.1cm) PWd: 0.95cm (0.6-1.1cm) Mass Keena: 175g LVMI: 82g/mA (>50-95g/m) LVIDd: 5.09cm (3.7-5.6 cm) LVIDdI: 2.38cm/m2 LVIDs: 3.55cm (1.8-4.2 cm) LVIDsI: 1.66cm/m2 RWT: 0.37 ( Right Ventricle Mid RV Lima: 3.4cm (2.7-3.3cm) Max Valve Velocities AV peak giana: 133cm/sec LVOT: 113.00cm/sec Atria LA AP: 3.9cm LA vol: 56.3mL MERLE: 26.3mL/mA (16-28ml/m2) León Arredondo MD Legally authenticated by BREA Lopez 2021-06-11 10:21:32 Dictated By: LEÓN ARREDONDO Transcribed By: Transcribed On: 06/11/2021 10:21 AM Electronically signed by: LEÓN ARREDONDO 06/11/2021 Thank you for referring VERNON FRANKS to [facility]. Legally authenticated by BREA Lopez 2021-06-11 10:21:32 Procedure Note Provider, [facility] [place] - 06/11/2021 [place] [address] Name: VERNON FRANKS Exam Date: 06/10/2021 : 1970 Age 51 Gender: F Physician: LEÓN ARREDONDO Facility: [facility] Facility HSV: Outpatient Exam: ECHO W SPEC COLOR FLOW Reason for Study: palpitations, chest pain SUMMARY Normal LV size with ejection fraction is>55%. Left ventricular filling pattern is indeterminate. INTERPRETATION DETAIL Fair quality study. Left ventricle: The left ventricle is normal in size with normal systolic function. The ejection fraction is >55%. There is normal LV wall thickness. The left ventricular wall motion is normal. The left ventricular filling pattern is indeterminate. Left atrium: The left atrium is normal. LA volume: 56.3mL, LA volume index: 26.3mL/mA . Right ventricle: The right ventricle is normal in size with normal function. Right atrium: The right atrium is normal. Mitral valve: The mitral valve is mildly thickened. There is no mitral stenosis. There is trace mitral regurgitation. Aortic valve: The aortic valve is mildly thickened. There is no aortic stenosis. AV peak qhqmgtas=578id/sec. Tricuspid valve: The tricuspid valve is normal. There is no tricuspid regurgitation, so PA pressure cannot be estimated. Pulmonic valve: The pulmonic valve is normal. Pericardium: The pericardium is normal. Interatrial septum: The interatrial septum is normal. Aorta: The aortic root is normal. Aortic dimensions - Ao M-mode= 3.20cm, Ascending=3.00cm. Vena Cava: The inferior vena cava is normal. MEASUREMENTS Left Ventricle IVSd: 0.95cm (0.6-1.1cm) PWd: 0.95cm (0.6-1.1cm) Mass Keena: 175g LVMI: 82g/mA (>50-95g/m) LVIDd: 5.09cm (3.7-5.6 cm) LVIDdI: 2.38cm/m2 LVIDs: 3.55cm (1.8-4.2 cm) LVIDsI: 1.66cm/m2 RWT: 0.37 ( Right Ventricle Mid RV Lima: 3.4cm (2.7-3.3cm) Max Valve Velocities AV peak giana: 133cm/sec LVOT: 113.00cm/sec Atria LA AP: 3.9cm LA vol: 56.3mL MERLE: 26.3mL/mA (16-28ml/m2) León Arredondo MD Legally authenticated by BREA Lopez 2021-06-11 10:21:32 Dictated By: LEÓN ARREDONDO Transcribed By: Transcribed On: 06/11/2021 10:21 AM Electronically signed by: LEÓN ARREDONDO 06/11/2021 Thank you for referring VERNON FRANKS to [facility]. Legally authenticated by BREA Lopez 2021-06-11 10:21:32 us [facility] [place] Provider CV ECHO PROCEDURES F inal Result documented in this encounter Visit Diagnoses Not on filedocumented in this encounter Care Teams Metal Furniture Assembly Supervisor Relationship Specialty Start Date End Date Poppy Lara MD [address] [place] [address] PCP - General 08/08/20 06/28/22 documented as of this encounter
--- OUTSIDE RECORDS SUMMARY | 2024-12-13 11:29 | XMS_ITS | Clinical Summary ---
Author Organization [facility] Address [address] [place] [address] Care Team Providers Care Business Process Modeler Name Role Phone Provider, No Known Primary Care Provider Unavail able Allergies No known active allergies Medications amLODIPine (NORVASC) 5 MG tablet 9 Active estradiol (ESTRACE) 0.5 MG tablet 9 Active lisinopril-hydr ochlorothiazide (PRINZIDE,ZESTO RETIC) 20-25 MG per tablet 9 Active omeprazole (priLOSEC) 20 MG capsule 9 Active albuterol sulfate HFA 108 (90 Base) MCG/ACT inhaler Inhale 2 puffs Every 4 (Four) Hours As Needed for Wheezing or Shortness of Air. 1 inhaler 9 Active pantoprazole (PROTONIX) 20 MG EC tablet 9 Active terbinafine (lamiSIL) 250 MG tablet 9 Active traMADol (ULTRAM) 50 MG tablet 9 Active CHANTIX CONTINUING MONTH DEWAYNE 1 MG tablet 9 Active Social History Tobacco Use Types Packs/Day Years Used Date Smoking Tobacco: Every Day Abuse Screen Answer Date Recorded Unsafe at Home or Work/School Not on file Feels Threatened by Someone? Not on file 11/2022 Does Anyone Keep You from Co ntacting Others or Doint Things Outside the Home? Not on file 01/03/2023 Physical Sign of Abuse Present Not on file 1 Housing Stability Answer Date Recorded Current Living Arrangements Not on file 11/2022 Potentially Unsafe Housing Conditions Not on sky e 01/03/2023 Family and Community Support Answer Jorge e Recorded Help with Day-to-Day Activities Not on file 01/03/2023 Lonely or Isolated Not on file 01/03/2023 Employment Answer Date Recorded Do you want help finding or keeping work or a vishal b? Not on file 01/03/2023 Disabilities Answer Date Recorded Concentrating, Remembering, or Making Decisions Difficulty Not on file 01/03/2023 Doing Errands Independently Difficulty Not on fi le 01/03/2023 Education Answer Date Recorded Help with school or training? Not on file Preferred Language Not on file 01/03/2023 Comments No Sex and Gender Information Value Date Recorded Sex Assigned at Not on file Legal Sex Female 11:08 AM EDT Gender Identity Not on file Sexual Orientation Not on file Last Filed Vital Signs Vital Sign Reading Time Taken Comments Blood Pressure 120/82 09/27/2018 12:48 PM EDT Pulse 106 09/27/2018 12:48 PM EDT Temperature 36.5 C (97.7 F) 09/27/2018 12:48 PM EDT Respiratory Rate 12 09/27/2018 12:48 PM EDT Oxygen Saturation 98% 09/27/2018 12:48 PM EDT Inhaled Oxygen Concentration - - Weight 94.8 kg (209 lb) 09/27/2018 12:48 PM EDT Height 172.7 cm (5' 8 ) 09/27/2018 12:48 PM EDT Body Mass Index 31.78 09/27/2018 12:48 PM EDT Plan of Treatment Health Maintenance Due Date Last Done Comments Annual Gynecologic Pelvic and Breast Exam 1970 TDAP/TD VACCINES (1 - Tdap) 05/29/1991 MAMMOGRAM 2012 COLOGUARD 2017 COLON CANCER SCREENING 5 YEAR SIGMOIDOSCOPY 2017 COLONOSCOPY [address] CANCER SCREENING 2017 CT COLONOGRAPHY 2017 FECAL OCCULT BLOOD TEST 2017 FIT Testing (1 year) 2017 ANNUAL PHYSICAL 04/26/2018 HEPATITIS C SCREENING 04/26/2018 Pneumococcal Vaccine 50+ (1 of 1 - PCV) 2022 ZOSTER VACCINE (1 of 2) 2022 INFLUENZA VACCINE 10/26/2024 Insurance Care Teams Business Process Modeler Relationship Specialty Start Date End Date Provider, [place] [address] PCP - General 04/26/18
== END 2024-12-12 23:59 | disposition home or self-care (01) ==
LOC: LAB.DROPOF 12-13 11:28
PROVIDERS: PCP Nurse Practitioner; Visit Provider Nurse Practitioner
DX: N39.0 Urinary tract infection, site not specified (principal)
CPT/HCPCS: 87086